=== PATIENT | female | born 1945 | race Caucasian/White ===

== ENCOUNTER → 2017-07-19 | Outpatient (REF) | payer MEDICARE ==
[2017-07-19 18:57] LABS: HEMATOCRIT 40.3 % (36.0-47.0); MEAN CORPUSCULAR HEMOGLOBIN 29.7 pg (27.0-33.0); MEAN CORPUSCULAR HGB CONC 32.3 g/dl (32.0-36.5); MEAN CORPUSCULAR VOLUME 92.2 fl (80.0-96.0); PLATELET COUNT, AUTOMATED 268 10^3/uL (150-450); RED BLOOD COUNT 4.37 10^6/uL (4.00-5.40); RED CELL DISTRIBUTION WIDTH 12.8 % (11.5-14.5); WHITE BLOOD COUNT 9.5 10^3/uL (4.0-10.0)
[2017-07-19 19:15] LABS: ALBUMIN 3.7 GM/DL (3.2-5.2); ALBUMIN/GLOBULIN RATIO 1.03 (1.00-1.93); ALKALINE PHOSPHATASE 70 U/L (45-117); ALT/SGPT 22 U/L (12-78); ANION GAP 6 MEQ/L (8-16); AST/SGOT 34 U/L (7-37); BILIRUBIN,TOTAL 0.4 MG/DL (0.2-1.0); BLOOD UREA NITROGEN 30 MG/DL (7-18); CALCIUM LEVEL 8.9 MG/DL (8.8-10.2); CARBON DIOXIDE LEVEL 26 MEQ/L (21-32); CHLORIDE LEVEL 110 MEQ/L (98-107); CHOLESTEROL LEVEL 176 MG/DL (<200); CHOLESTEROL RISK RATIO 3.911 (<5); CREATININE FOR GFR 1.62 MG/DL (0.55-1.02); GLOMERULAR FILTRATION RATE 33.3 (>39); GLUCOSE, FASTING 142 MG/DL (70-100); HDL CHOLESTEROL 45 MG/DL (>40); LDL CHOLESTEROL 82.8 MG/DL (<100); NON-HDL-C 131 MG/DL; SODIUM LEVEL 142 MEQ/L (136-145); TOTAL PROTEIN 7.3 GM/DL (6.4-8.2); TRIGLYCERIDES LEVEL 241 MG/DL (<150)
[2017-07-19 19:19] LABS: POTASSIUM SERUM 5.3 MEQ/L (3.5-5.1)
[2017-07-19 19:57] LABS: MAU/CREAT RATIO 194.9 MCG/MG (0.0-30.0)
[2017-07-19 20:02] LABS: ESTIMATED AVERAGE GLUCOSE 189 MG/DL (60-110); HEMOGLOBIN A1c 8.2 %
== END ==
LOC: M SFHCLERA 12:12
DX: E11.22 Type 2 diabetes mellitus with diabetic chronic kidney disease (principal); N18.3 Chronic kidney disease, stage 3 (moderate)
CPT/HCPCS: 84443

== ENCOUNTER → 2017-07-20 | Outpatient (CLI) | payer MEDICARE | LOC: M RAD 11:59 | DX: Z12.31 Encounter for screening mammogram for malignant neoplasm of breast (principal) | CPT/HCPCS: 77067 ==

== ENCOUNTER → 2017-08-17 | Outpatient (REF) | payer MEDICARE ==
[2017-08-17 17:28] LABS: POTASSIUM SERUM 5.6 MEQ/L (3.5-5.1)
== END ==
LOC: M SFHCLERA 12:18
DX: E11.29 Type 2 diabetes mellitus with other diabetic kidney complication (principal); N18.3 Chronic kidney disease, stage 3 (moderate)
CPT/HCPCS: 84132

== ENCOUNTER 2017-08-31 17:54 | Inpatient (IN) | payer MEDICARE ==
[2017-08-31] MEDS: NS 1,000 ML IV ×3 (18:45→22:41)
[2017-08-31 18:55] LABS: BASO % 0.5 % (0.0-1.0); EOS # 0.2 10^3/uL (0.0-0.50); EOS % 2.5 % (0.0-3.0); HEMATOCRIT 37.7 % (36.0-47.0); HEMOGLOBIN 12.3 g/dl (12.0-16.0); IMMATURE GRANULOCYTE % 0.5 % (0-3.0); LYMPH # 2.3 10^3/uL (1.5-4.5); LYMPH % 27.3 % (24.0-44.0); MEAN CORPUSCULAR HEMOGLOBIN 29.2 pg (27.0-33.0); MEAN CORPUSCULAR HGB CONC 32.6 g/dl (32.0-36.5); MEAN CORPUSCULAR VOLUME 89.5 fl (80.0-96.0); MONO # 0.7 10^3/uL (0.0-0.8); NEUTROPHILS # 5.2 10^3/uL (1.8-7.7); NEUTROPHILS % 61.2 % (36.0-66.0); PLATELET COUNT, AUTOMATED 286 10^3/uL (150-450); RED BLOOD COUNT 4.21 10^6/uL (4.00-5.40); RED CELL DISTRIBUTION WIDTH 12.9 % (11.5-14.5); WHITE BLOOD COUNT 8.5 10^3/uL (4.0-10.0)
[2017-08-31 19:24] LABS: ALBUMIN 3.4 GM/DL (3.2-5.2); ALBUMIN/GLOBULIN RATIO 0.92 (1.00-1.93); ALKALINE PHOSPHATASE 67 U/L (45-117); ALT/SGPT 16 U/L (12-78); ANION GAP 10 MEQ/L (8-16); AST/SGOT 18 U/L (7-37); BILIRUBIN,DIRECT 0.1 MG/DL (0.0-0.2); BILIRUBIN,TOTAL 0.3 MG/DL (0.2-1.0); BLOOD UREA NITROGEN 59 MG/DL (7-18); CARBON DIOXIDE LEVEL 23 MEQ/L (21-32); CHLORIDE LEVEL 107 MEQ/L (98-107); CPK CREATINE PHOSPHOKINASE 36 U/L (26-192); CREATININE FOR GFR 2.65 MG/DL (0.55-1.30); GLOMERULAR FILTRATION RATE 18.9 (>39); GLUCOSE, FASTING 227 MG/DL (70-100); MB/CK RELATIVE INDEX 2.77 (< OR =4); SODIUM LEVEL 140 MEQ/L (136-145); TOTAL PROTEIN 7.1 GM/DL (6.4-8.2); TROPONIN I < 0.02 NG/ML (< 0.10)
[2017-08-31 19:25] LABS: POTASSIUM SERUM 5.7 MEQ/L (3.5-5.1)
[2017-08-31] MEDS: HumaLOG INSULIN (NovoLOG) PER UNIT SC (21:00)
[2017-08-31 21:33] LABS: ALBUMIN 3.3 GM/DL (3.2-5.2); ALBUMIN/GLOBULIN RATIO 0.83 (1.00-1.93); ALKALINE PHOSPHATASE 61 U/L (45-117); ALT/SGPT 15 U/L (12-78); ANION GAP 6 MEQ/L (8-16); AST/SGOT 18 U/L (7-37); BILIRUBIN,TOTAL 0.2 MG/DL (0.2-1.0); BLOOD UREA NITROGEN 59 MG/DL (7-18); CALCIUM LEVEL 8.7 MG/DL (8.8-10.2); CARBON DIOXIDE LEVEL 24 MEQ/L (21-32); CHLORIDE LEVEL 111 MEQ/L (98-107); CREATININE FOR GFR 2.46 MG/DL (0.55-1.30); GLOMERULAR FILTRATION RATE 20.6 (>39); GLUCOSE, FASTING 138 MG/DL (70-100); KETONE, URINE AUTO RFX NEGATIVE (NEGATIVE); LEUKOCYTE ESTERASE UR AUTO RFX NEGATIVE (NEGATIVE); NITRITE, URINE AUTO RFX NEGATIVE (NEGATIVE); RBC, URINE AUTO RFX 1 /HPF (0-3); SODIUM LEVEL 141 MEQ/L (136-145); SPECIFIC GRAVITY UR AUTO RFX 1.012 (1.002-1.035); SQUAM EPITHELIAL CELL UR AURFX 0 /HPF (0-6); TOTAL PROTEIN 7.3 GM/DL (6.4-8.2); WBC, URINE AUTO RFX 0 /HPF (0-3)
[2017-08-31 21:41] LABS: POTASSIUM SERUM 5.5 MEQ/L (3.5-5.1)
[2017-08-31] MEDS ORDERED: DEXTROSE 50% 50 ML SYRINGE IV (22:45)
[2017-08-31] MEDS ORDERED: ACETAMINOPHEN TAB 650MG DOSE (2X325MG) PO (22:45)
[2017-08-31] MEDS ORDERED: GLUCOSE 4 GM CHEW TABLET PO (22:45)
[2017-08-31] MEDS ORDERED: GLUCAGON FOR INJ 1 MG VIAL (J1610) SC (22:45)
[2017-08-31] MEDS: SOD POLYSTYRENE SULFONATE SUSP 15 GM/60 ML UD PO (23:00)
[2017-08-31 23:44] LABS: BEDSIDE GLUCOSE 134 MG/DL (83-110)
[2017-09-01] MEDS: HEPARIN SOD (PORCINE) 5000 UNITS/ML VIAL SC ×4 (05:54→21:41)
[2017-09-01 06:37] LABS: HEMOGLOBIN 11.1 g/dl (12.0-16.0); MEAN CORPUSCULAR HEMOGLOBIN 29.5 pg (27.0-33.0); MEAN CORPUSCULAR HGB CONC 32.6 g/dl (32.0-36.5); MEAN CORPUSCULAR VOLUME 90.4 fl (80.0-96.0); PLATELET COUNT, AUTOMATED 251 10^3/uL (150-450); RED BLOOD COUNT 3.76 10^6/uL (4.00-5.40); RED CELL DISTRIBUTION WIDTH 12.9 % (11.5-14.5)
[2017-09-01 07:09] LABS: ALBUMIN 3.1 GM/DL (3.2-5.2); ANION GAP 8 MEQ/L (8-16); BLOOD UREA NITROGEN 52 MG/DL (7-18); CALCIUM LEVEL 8.4 MG/DL (8.8-10.2); CARBON DIOXIDE LEVEL 23 MEQ/L (21-32); CHLORIDE LEVEL 113 MEQ/L (98-107); GLOMERULAR FILTRATION RATE 24.7 (>39); GLUCOSE, FASTING 134 MG/DL (70-100); PHOSPHORUS LEVEL 3.3 MG/DL (2.5-4.9); SODIUM LEVEL 144 MEQ/L (136-145)
[2017-09-01] MEDS: HumaLOG INSULIN (NovoLOG) PER UNIT SC ×4 (07:53→21:00)
[2017-09-01] MEDS: DOCUSATE SODIUM 100 MG CAP PO ×2 (09:21→21:42)
[2017-09-01] MEDS: ASPIRIN 81 MG ENTERIC TAB PO (09:21)
[2017-09-01] MEDS: ALLOPURINOL 100 MG TAB PO (09:21)
[2017-09-01] MEDS: NS 1,000 ML IV (09:21)
[2017-09-01] MEDS: amLODIPine 10 MG TAB PO (09:21)
[2017-09-01] MEDS ORDERED: GASTROGRAFIN SOLUTION 30ML (Q9963) As Ordered (11:11)
[2017-09-01] MEDS: GASTROGRAFIN SOLUTION 30ML PO ×2 (11:30→12:00)
[2017-09-01] MEDS: OMEGA-3 1050MG CAPSULE PO ×2 (12:41→21:41)
[2017-09-01 14:14] LABS: BEDSIDE GLUCOSE 133 MG/DL (83-110)
[2017-09-01 15:03] LABS: POTASSIUM SERUM 5.3 MEQ/L (3.5-5.1)
[2017-09-01 15:05] LABS: INR 1.06; PROTHROMBIN TIME 13.9 SECONDS (12.4-14.5)
[2017-09-01 15:06] LABS: PARTIAL THROMBOPLASTIN TIME 28.7 SECONDS (26.8-37.9)
[2017-09-01] MEDS: SOD POLYSTYRENE SULFONATE SUSP 15 GM/60 ML UD PO (15:55)
[2017-09-01 17:08] LABS: BEDSIDE GLUCOSE 182 MG/DL (83-110)
[2017-09-01] MEDS: SIMVASTATIN 10 MG TAB PO (21:42)
[2017-09-01 21:51] LABS: BEDSIDE GLUCOSE 175 MG/DL (83-110)
[2017-09-02 05:13] LABS: HEMATOCRIT 32.1 % (36.0-47.0); HEMOGLOBIN 10.3 g/dl (12.0-16.0); MEAN CORPUSCULAR HEMOGLOBIN 28.9 pg (27.0-33.0); MEAN CORPUSCULAR HGB CONC 32.1 g/dl (32.0-36.5); MEAN CORPUSCULAR VOLUME 89.9 fl (80.0-96.0); PLATELET COUNT, AUTOMATED 246 10^3/uL (150-450); RED BLOOD COUNT 3.57 10^6/uL (4.00-5.40); RED CELL DISTRIBUTION WIDTH 12.9 % (11.5-14.5)
[2017-09-02] MEDS: HEPARIN SOD (PORCINE) 5000 UNITS/ML VIAL SC ×2 (05:24→14:00)
[2017-09-02 05:27] LABS: ANION GAP 9 MEQ/L (8-16); BLOOD UREA NITROGEN 39 MG/DL (7-18); CALCIUM LEVEL 8.3 MG/DL (8.8-10.2); CARBON DIOXIDE LEVEL 23 MEQ/L (21-32); CHLORIDE LEVEL 112 MEQ/L (98-107); CREATININE FOR GFR 1.74 MG/DL (0.55-1.30); GLOMERULAR FILTRATION RATE 30.7 (>39); GLUCOSE, FASTING 137 MG/DL (70-100); PHOSPHORUS LEVEL 3.4 MG/DL (2.5-4.9); SODIUM LEVEL 144 MEQ/L (136-145)
[2017-09-02 05:36] LABS: LDH LACTATE DEHYDROGENASE 112 U/L (84-246)
[2017-09-02] MEDS: HumaLOG INSULIN (NovoLOG) PER UNIT SC ×2 (08:42→11:45)
[2017-09-02] MEDS: OMEGA-3 1050MG CAPSULE PO (08:42)
[2017-09-02] MEDS: amLODIPine 10 MG TAB PO (08:42)
[2017-09-02] MEDS: DOCUSATE SODIUM 100 MG CAP PO (08:42)
[2017-09-02] MEDS: ALLOPURINOL 100 MG TAB PO (08:42)
[2017-09-02] MEDS: ASPIRIN 81 MG ENTERIC TAB PO (08:42)
[2017-09-02 10:56] LABS: ALPHA FETOPROTEIN TUMOR QUANT 2.7 NG/ML (<8.1); CARCINOEMBRYONIC ANTIGEN 0.6 NG/ML (<2.5)
[2017-09-02 11:25] LABS: CA 125 30.8 U/ML (<30.2)
[2017-09-02 11:25] LABS: CA19-9 TUMOR MARKER,CARBOHYDRA 5.2 U/ML (<35.0)
[2017-09-02 11:34] LABS: BEDSIDE GLUCOSE 166 MG/DL (83-110)
== END 2017-09-02 15:35 | disposition home or self-care (01) | DRG 684 ==
LOC: M PCU 09-01 17:25 → M ED 17:54 → M ED INP 22:41
DX: N17.9 Acute kidney failure, unspecified (principal); I12.9 Hypertensive chronic kidney disease with stage 1 through stage 4 chronic kidney disease, or unspecified chronic kidney disease; E87.5 Hyperkalemia; M10.9 Gout, unspecified; E11.9 Type 2 diabetes mellitus without complications; R19.09 Other intra-abdominal and pelvic swelling, mass and lump; N18.3 Chronic kidney disease, stage 3 (moderate); E78.5 Hyperlipidemia, unspecified; Z90.49 Acquired absence of other specified parts of digestive tract; Z90.710 Acquired absence of both cervix and uterus; Z79.82 Long term (current) use of aspirin; Z79.84 Long term (current) use of oral hypoglycemic drugs; Z79.899 Other long term (current) drug therapy

== ENCOUNTER → 2017-08-31 | Outpatient (REF) | payer MEDICARE ==
[2017-08-31 13:30] LABS: ANION GAP 10 MEQ/L (8-16); BLOOD UREA NITROGEN 51 MG/DL (7-18); CALCIUM LEVEL 9.7 MG/DL (8.8-10.2); CARBON DIOXIDE LEVEL 25 MEQ/L (21-32); CHLORIDE LEVEL 106 MEQ/L (98-107); CREATININE FOR GFR 2.28 MG/DL (0.55-1.30); GLOMERULAR FILTRATION RATE 22.5 (>39); GLUCOSE, FASTING 211 MG/DL (70-100); POTASSIUM SERUM 4.9 MEQ/L (3.5-5.1); SODIUM LEVEL 141 MEQ/L (136-145)
== END ==
LOC: M SFHCLERA 10:05
DX: E11.29 Type 2 diabetes mellitus with other diabetic kidney complication (principal); E87.5 Hyperkalemia
CPT/HCPCS: 80048

== ENCOUNTER → 2017-09-06 | Outpatient (REF) | payer MEDICARE ==
[2017-09-06 18:07] LABS: ANION GAP 8 MEQ/L (8-16); BLOOD UREA NITROGEN 46 MG/DL (7-18); CALCIUM LEVEL 9.6 MG/DL (8.8-10.2); CARBON DIOXIDE LEVEL 26 MEQ/L (21-32); CHLORIDE LEVEL 109 MEQ/L (98-107); CREATININE FOR GFR 1.78 MG/DL (0.55-1.30); GLOMERULAR FILTRATION RATE 29.9 (>39); GLUCOSE, FASTING 129 MG/DL (70-100); POTASSIUM SERUM 4.6 MEQ/L (3.5-5.1); SODIUM LEVEL 143 MEQ/L (136-145)
== END ==
LOC: M SFHCLERA 13:48
DX: I10 Essential (primary) hypertension (principal)
CPT/HCPCS: 80048

== ENCOUNTER → 2017-10-03 | Outpatient (REF) | payer MEDICARE ==
[2017-10-03 17:32] LABS: BASO % 0.4 % (0.0-1.0); EOS # 0.2 10^3/uL (0.0-0.50); EOS % 2.7 % (0.0-3.0); HEMOGLOBIN 12.3 g/dl (12.0-15.5); IMMATURE GRANULOCYTE % 0.4 % (0-3.0); LYMPH # 2.5 10^3/uL (1.5-4.5); MEAN CORPUSCULAR HEMOGLOBIN 29.8 pg (27.0-33.0); MEAN CORPUSCULAR HGB CONC 31.5 g/dl (32.0-36.5); MEAN CORPUSCULAR VOLUME 94.4 fl (80.0-96.0); MONO # 0.7 10^3/uL (0.0-0.8); MONO % 8.2 % (0.0-5.0); NEUTROPHILS # 4.9 10^3/uL (1.8-7.7); NEUTROPHILS % 58.3 % (36.0-66.0); PLATELET COUNT, AUTOMATED 260 10^3/uL (150-450); RED BLOOD COUNT 4.13 10^6/uL (4.00-5.40); RED CELL DISTRIBUTION WIDTH 13.9 % (11.5-14.5); WHITE BLOOD COUNT 8.4 10^3/uL (4.0-10.0)
[2017-10-03 17:58] LABS: INR 1.03; PROTHROMBIN TIME 13.6 SECONDS (12.4-14.5)
[2017-10-03 18:27] LABS: ANION GAP 6 MEQ/L (8-16); BLOOD UREA NITROGEN 43 MG/DL (7-18); CALCIUM LEVEL 9.4 MG/DL (8.8-10.2); CARBON DIOXIDE LEVEL 24 MEQ/L (21-32); CHLORIDE LEVEL 113 MEQ/L (98-107); CREATININE FOR GFR 2.01 MG/DL (0.55-1.30); ESTIMATED AVERAGE GLUCOSE 169 MG/DL (60-110); GLUCOSE, FASTING 153 MG/DL (70-100); HEMOGLOBIN A1c 7.5 %; SODIUM LEVEL 143 MEQ/L (136-145)
[2017-10-03 18:50] LABS: POTASSIUM SERUM 5.6 MEQ/L (3.5-5.1)
== END ==
LOC: M SFHCLERA 10:18
DX: Z01.818 Encounter for other preprocedural examination (principal); N85.9 Noninflammatory disorder of uterus, unspecified; E11.22 Type 2 diabetes mellitus with diabetic chronic kidney disease
CPT/HCPCS: 83036

== ENCOUNTER → 2017-10-10 | Outpatient (REF) | payer MEDICARE ==
[2017-10-10 12:04] LABS: ANION GAP 7 MEQ/L (8-16); BLOOD UREA NITROGEN 45 MG/DL (7-18); CARBON DIOXIDE LEVEL 24 MEQ/L (21-32); CHLORIDE LEVEL 112 MEQ/L (98-107); CREATININE FOR GFR 1.97 MG/DL (0.55-1.30); GLOMERULAR FILTRATION RATE 26.6 (>39); GLUCOSE, FASTING 144 MG/DL (70-100); SODIUM LEVEL 143 MEQ/L (136-145)
[2017-10-10 12:05] LABS: POTASSIUM SERUM 5.2 MEQ/L (3.5-5.1)
== END ==
LOC: M SFHCLERA 08:49
DX: N18.4 Chronic kidney disease, stage 4 (severe) (principal)
CPT/HCPCS: 80048

== ENCOUNTER → 2017-11-14 | Outpatient (REF) | payer MEDICARE ==
[2017-11-14 16:42] LABS: ANION GAP 7 MEQ/L (8-16); BLOOD UREA NITROGEN 39 MG/DL (7-18); CALCIUM LEVEL 9.3 MG/DL (8.8-10.2); CARBON DIOXIDE LEVEL 26 MEQ/L (21-32); CHLORIDE LEVEL 110 MEQ/L (98-107); CREATININE FOR GFR 1.94 MG/DL (0.55-1.30); GLOMERULAR FILTRATION RATE 27.1 (>39); GLUCOSE, FASTING 91 MG/DL (70-100); SODIUM LEVEL 143 MEQ/L (136-145)
[2017-11-14 16:46] LABS: POTASSIUM SERUM 5.6 MEQ/L (3.5-5.1)
== END ==
LOC: M SFHCLERA 11:10
DX: N18.3 Chronic kidney disease, stage 3 (moderate) (principal)
CPT/HCPCS: 80048

== ENCOUNTER → 2017-11-16 | Outpatient (CLI) | payer MEDICARE ==
[2017-11-16 09:52] LABS: CORTISOL AM 17.5 UG/DL (4.3-22.4)
[2017-11-21 14:08] LABS: ALDOSTERONE 3.8 ng/dL (0.0-30.0)
[2017-11-21 14:08] LABS: RENIN LEVEL 0.564 ng/mL/hr (0.167-5.380)
== END ==
LOC: M LAB 08:05
DX: E87.5 Hyperkalemia (principal)
CPT/HCPCS: 84244

== ENCOUNTER → 2017-12-16 | Outpatient (REF) | payer MEDICARE ==
[2017-12-16 13:28] LABS: ESTIMATED AVERAGE GLUCOSE 123 MG/DL (60-110); HEMOGLOBIN A1c 5.9 %
== END ==
LOC: M SFHCLERA 09:18
DX: E11.29 Type 2 diabetes mellitus with other diabetic kidney complication (principal)
CPT/HCPCS: 83036

== ENCOUNTER → 2017-12-26 | Outpatient (REF) | payer MEDICARE ==
[2017-12-26 19:49] LABS: FERRITIN 242 NG/ML (8-252); IRON (FE) 75 UG/DL (50-170); PERCENT SATURATION 22.1 % (13.2-45.0); TOTAL IRON BINDING CAPACITY 340 UG/DL (250-450)
== END ==
LOC: M LAB REF 17:11
DX: N18.9 Chronic kidney disease, unspecified (principal); D63.1 Anemia in chronic kidney disease
CPT/HCPCS: 83550

== ENCOUNTER → 2018-01-04 | Outpatient (CLI) | payer MEDICARE | LOC: M RAD 07:10 | DX: N18.9 Chronic kidney disease, unspecified (principal); I12.9 Hypertensive chronic kidney disease with stage 1 through stage 4 chronic kidney disease, or unspecified chronic kidney disease | CPT/HCPCS: 76775 ==

== ENCOUNTER → 2018-07-12 | Outpatient (REF) | payer MEDICARE ==
[~2018-07-12] MED LIST: ACET65TA OR; ALLO100T PO; ASPI81TA83 PO; FERR325T OR; FISH100049 PO; GLIP10TA6 PO; GLUC850T PO; HYDR25TAB PO; KEFL250C OR; LISI-538 PO; LISI5TAB PO; METO1TAB33 PO; NORV5TAB PO; PIOG1TAB55 PO; SIMV10TA2 PO
[2018-07-12 17:01] LABS: BASO # 0.1 10^3/uL (0.0-0.2); BASO % 0.6 % (0.0-1.0); EOS # 0.3 10^3/uL (0.0-0.50); EOS % 3.3 % (0.0-3.0); HEMATOCRIT 37.3 % (36.0-47.0); HEMOGLOBIN 11.7 g/dl (12.0-15.5); LYMPH # 2.2 10^3/uL (1.5-4.5); LYMPH % 26.2 % (24.0-44.0); MEAN CORPUSCULAR HEMOGLOBIN 30.2 pg (27.0-33.0); MEAN CORPUSCULAR HGB CONC 31.4 g/dl (32.0-36.5); MEAN CORPUSCULAR VOLUME 96.4 fl (80.0-96.0); MONO # 0.7 10^3/uL (0.0-0.8); NEUTROPHILS # 5.1 10^3/uL (1.8-7.7); NEUTROPHILS % 61.3 % (36.0-66.0); PLATELET COUNT, AUTOMATED 262 10^3/uL (150-450); RED BLOOD COUNT 3.87 10^6/uL (4.00-5.40); WHITE BLOOD COUNT 8.3 10^3/uL (4.0-10.0)
[2018-07-12 17:12] LABS: ALBUMIN 3.1 GM/DL (3.2-5.2); BILIRUBIN,TOTAL 0.3 MG/DL (0.2-1.0); CALCIUM LEVEL 9.3 MG/DL (8.8-10.2); CHOLESTEROL RISK RATIO 3.17 (<5); CREATININE FOR GFR 2.25 MG/DL (0.55-1.30); GLOMERULAR FILTRATION RATE 22.8 (>39); POTASSIUM SERUM 5.7 MEQ/L (3.5-5.1); THYROID STIMULATING HORMONE 2.46 uIU/ML (0.358-3.740); TOTAL PROTEIN 7.1 GM/DL (6.4-8.2)
[2018-07-12 17:13] LABS: HEMOGLOBIN A1c 6.4 %
[2018-07-12 17:18] LABS: CREATININE, URINE 99.7 MG/DL; MAU/CREAT RATIO 121.3 MCG/MG (0.0-30.0)
== END ==
LOC: M SFHCLERA 10:21
PROVIDERS: ATTEND Family Medicine
DX: E11.29 Type 2 diabetes mellitus with other diabetic kidney complication (principal)

== ENCOUNTER → 2018-07-21 | Outpatient (CLI) | payer MEDICARE ==
--- NOTE | 2018-07-21 10:50 | REPMRS ---
Patient History The patient states she has not had a clinical breast exam in over a year. No known family history of cancer. Digital Mammo Screening Bilat: July 21, 2018 - Exam #: [id number] Bilateral CC and MLO view(s) were taken. Technologist: Cynthia Begum, Technologist Prior study comparison: July 20, 2017, bilateral digital mammo screening bilat performed at [facility]. April 12, 2000, bilateral screening mammogram, performed at [facility]. FINDINGS: There are scattered fibroglandular densities. There has been no change in the appearance of the mammogram from the prior studies. There is a mild amount of scattered fibroglandular density which is fairly symmetric. There is no interval development of dominant mass, architectural distortion, or clustered microcalcification suggestive of malignancy. 3-D tomosynthesis shows no additional findings. Assessment: BI-RADS/ACR category 1 mammogram. Negative Mammogram. Recommendation Routine screening mammogram of both breasts in 1 year (for women over age 40). This patient's Lifetime Breast Cancer RIsk is estimated at 2.8 %. This mammogram was interpreted with the aid of an FDA-approved computer-aided dectection system. Electronically Signed By: Enrique Rangel MD 07/21/18 [id number]
== END ==
LOC: M RAD 10:15
PROVIDERS: ATTEND Family Medicine
DX: Z12.31 Encounter for screening mammogram for malignant neoplasm of breast (principal)

== ENCOUNTER → 2018-10-11 | Outpatient (REF) | payer MEDICARE ==
[2018-10-11 11:27] LABS: CALCIUM LEVEL 9.5 MG/DL (8.8-10.2); CREATININE FOR GFR 1.95 MG/DL (0.55-1.30); GLOMERULAR FILTRATION RATE 26.8 (>39)
== END ==
LOC: M SFHCLERA 08:56
PROVIDERS: ATTEND Family Medicine
DX: N18.4 Chronic kidney disease, stage 4 (severe) (principal)

== ENCOUNTER → 2018-10-16 | Outpatient (CLI) | payer MEDICARE ==
--- NOTE | 2018-10-16 10:19 | REP ---
LUMBAR SPINE, FIVE VIEWS: HISTORY: Mid back pain. There is no acute fracture or subluxation. The L3-4 through L5-S1 intervertebral discs are decreased in height consistent with disc degeneration. Osteophytes are present on L1 and L5. There is narrowing of the right L4-5 and L5-S1 and left L4-5 facet joints. Impression: Degenerative change as described above. Electronically Signed by Javier Tomlinson MD 10/16/2018 10:24 A
--- NOTE | 2018-10-16 10:20 | REP ---
THORACIC SPINE, FOUR VIEWS: HISTORY: Back pain. There is no acute fracture or subluxation. There is loss of height of several mid and lower thoracic intervertebral discs. Osteophytes are present in the mid and lower thoracic spine. IMPRESSION: Degenerative change as described above. Electronically Signed by Javier Tomlinson MD 10/16/2018 10:25 A
== END ==
LOC: M LRY 09:23
PROVIDERS: ATTEND Family Medicine
DX: M51.34 Other intervertebral disc degeneration, thoracic region (principal); M51.36 Other intervertebral disc degeneration, lumbar region; M51.37 Other intervertebral disc degeneration, lumbosacral region; M25.78 Osteophyte, vertebrae
CPT/HCPCS: 72072; 72110; G0463

== ENCOUNTER → 2018-11-02 | Outpatient (CLI) | payer MEDICARE ==
--- NOTE | 2018-11-06 14:44 | DEXA ---
AP SPINE L1 - L4 1.382 1.5 3.2 LT FEMUR TOTAL 1.064 0.4 2.0 LT NECK 0.938 -0.7 -1.1 RT FEMUR TOTAL 1.066 0.5 2.1 RT NECK 1.042 0.0 1.8 TOTAL BODY TOTAL OTHER COMMENTS: Normal bone densitometry of the spine and hips. The increased density of the spine does represent a significant change. The decreased density of the left hip does represent a significant change. The decreased density of the right hip does represent significant change. The density of the spine has increased 12.6% since the initial exam on 07/24/2001. The spine density has increased 4.2% since the most recent exam on 05/17/2013. The density of the left hip has decreased 4.7% since the initial exam on 07/24/2001. The density of the left hip has decreased 3.2% since the most recent exam on 05/17/2013. The density of the right hip has decreased 6.7% since the initial exam on 07/24/2001. The density of the right hip has decreased 2.4% since the most recent exam on 05/17/2013. FOLLOW-UP: Recommendation for the next bone density exam: 5 years. KELSY
== END ==
LOC: M WHC 12:52
PROVIDERS: ATTEND Family Medicine
DX: Z13.820 Encounter for screening for osteoporosis (principal); M85.89 Other specified disorders of bone density and structure, multiple sites

== ENCOUNTER → 2019-01-15 | Outpatient (REF) | payer MEDICARE ==
[2019-01-15 14:43] LABS: CALCIUM LEVEL 9.5 MG/DL (8.8-10.2); CHOLESTEROL RISK RATIO 3.212 (<5); CREATININE FOR GFR 2.17 MG/DL (0.55-1.30); GLOMERULAR FILTRATION RATE 23.7 (>39); POTASSIUM SERUM 4.6 MEQ/L (3.5-5.1)
[2019-01-15 15:06] LABS: HEMOGLOBIN A1c 6.5 %
[2019-01-15 15:17] LABS: BASO # 0.1 10^3/uL (0.0-0.2); BASO % 0.7 % (0.0-1.0); EOS # 0.3 10^3/uL (0.0-0.50); EOS % 3.8 % (0.0-3.0); HEMATOCRIT 37.7 % (36.0-47.0); HEMOGLOBIN 11.8 g/dl (12.0-15.5); LYMPH # 2.1 10^3/uL (1.5-4.5); LYMPH % 29.4 % (24.0-44.0); MEAN CORPUSCULAR HEMOGLOBIN 30.6 pg (27.0-33.0); MEAN CORPUSCULAR HGB CONC 31.3 g/dl (32.0-36.5); MEAN CORPUSCULAR VOLUME 97.7 fl (80.0-96.0); MONO # 0.6 10^3/uL (0.0-0.8); NEUTROPHILS # 4.1 10^3/uL (1.8-7.7); NEUTROPHILS % 57.8 % (36.0-66.0); PLATELET COUNT, AUTOMATED 239 10^3/uL (150-450); RED BLOOD COUNT 3.86 10^6/uL (4.00-5.40); WHITE BLOOD COUNT 7.1 10^3/uL (4.0-10.0)
== END ==
LOC: M SFHCLERA 11:34
PROVIDERS: ATTEND Family Medicine
DX: E11.29 Type 2 diabetes mellitus with other diabetic kidney complication (principal); N18.4 Chronic kidney disease, stage 4 (severe); E78.5 Hyperlipidemia, unspecified
CPT/HCPCS: 80048; 80061; 83036; 85025; G0463

== ENCOUNTER → 2019-04-17 | Outpatient (REF) | payer MEDICARE ==
[2019-04-17 17:51] LABS: CALCIUM LEVEL 9.5 MG/DL (8.8-10.2); CREATININE FOR GFR 2.24 MG/DL (0.55-1.30); GLOMERULAR FILTRATION RATE 22.8 (>39); MAGNESIUM LEVEL 2.2 MG/DL (1.8-2.4); PHOSPHORUS LEVEL 4.1 MG/DL (2.5-4.9); POTASSIUM SERUM 5.5 MEQ/L (3.5-5.1)
== END ==
LOC: M SFHCLERA 12:39
PROVIDERS: ATTEND Family Medicine
DX: I12.9 Hypertensive chronic kidney disease with stage 1 through stage 4 chronic kidney disease, or unspecified chronic kidney disease (principal); N18.4 Chronic kidney disease, stage 4 (severe); Z23 Encounter for immunization
CPT/HCPCS: 80048; 83735; 84100; 90471; 90682; G0463

== ENCOUNTER → 2019-04-19 | Outpatient (REF) | payer MEDICARE ==
[2019-04-19 18:19] LABS: PERCENT SATURATION 30.3 % (13.2-45.0)
== END ==
LOC: M LAB REF 16:44
PROVIDERS: ATTEND Internal Medicine Nephrology
DX: N18.9 Chronic kidney disease, unspecified (principal); D63.1 Anemia in chronic kidney disease

== ENCOUNTER → 2019-07-18 | Outpatient (REF) | payer MEDICARE ==
[~2019-07-18] MED LIST changes: +SIMV10TA21 PO
[2019-07-18 20:33] LABS: CREATININE FOR GFR 2.14 MG/DL (0.55-1.30); POTASSIUM SERUM 4.5 MEQ/L (3.5-5.1)
[2019-07-18 20:53] LABS: HEMOGLOBIN A1c 6.1 %
== END ==
LOC: M SFHCLERA 15:16
PROVIDERS: ATTEND Family Medicine
DX: E11.29 Type 2 diabetes mellitus with other diabetic kidney complication (principal); N18.4 Chronic kidney disease, stage 4 (severe)

== ENCOUNTER → 2019-12-20 | Outpatient (REF) | payer MEDICARE ==
[2019-12-20 11:44] LABS: CHOLESTEROL RISK RATIO 3.488 (<5)
[2019-12-20 12:06] LABS: HEMOGLOBIN A1c 6.1 %
== END ==
LOC: M SFHCLERA 09:23
PROVIDERS: ATTEND Family Medicine
DX: E11.22 Type 2 diabetes mellitus with diabetic chronic kidney disease (principal); E78.2 Mixed hyperlipidemia

== ENCOUNTER → 2020-08-21 | Outpatient (CLI) | payer MEDICARE ==
[~2020-08-21] MED LIST changes: +HYDR-3490 PO; -HYDR25TAB PO; -LISI-538 PO; +LISI20TA33 PO
[2020-08-21 12:10] LABS: HEMOGLOBIN A1c 5.8 %
[2020-08-21 12:18] LABS: CALCIUM LEVEL 9.3 MG/DL (8.8-10.2); CHOLESTEROL RISK RATIO 3.52 (<5); CREATININE FOR GFR 2.11 MG/DL (0.55-1.30); GLOMERULAR FILTRATION RATE 24.4 (>39); POTASSIUM SERUM 4.6 MEQ/L (3.5-5.1)
== END ==
LOC: M WUC 10:16
PROVIDERS: ATTEND Family Medicine
DX: E11.22 Type 2 diabetes mellitus with diabetic chronic kidney disease (principal)

== ENCOUNTER → 2021-02-25 | Outpatient (REF) | payer MEDICARE | LOC: M LAB REF 17:01 | PROVIDERS: ATTEND Internal Medicine Nephrology | DX: E83.42 Hypomagnesemia (principal) ==

== ENCOUNTER → 2021-03-17 | Outpatient (CLI) | payer MEDICARE ==
--- NOTE | 2021-03-17 12:37 | REPMRS ---
Patient History The patient states she had a clinical breast exam in Jul 2020. Patient is postmenopausal. No known family history of cancer. Benign excisional biopsy of the left breast, 1979. Patient states no breast complaints today. Patient has signed MRS History Sheet. Digital Woman Screen Mammo: March 17, 2021 - Exam #: [id number] Bilateral CC and MLO view(s) were taken. Technologist: Katy Rogers, Technologist Prior study comparison: July 21, 2018, bilateral digital mammo screening bilat, performed at [facility]. July 20, 2017, bilateral digital mammo screening bilat, performed at [facility]. FINDINGS: There are scattered fibroglandular densities. Screening. Digital screening (2D) mammography was performed bilaterally in the CC and MLO projections. Additionally, breast tomosynthesis (3D mammography) was performed bilaterally in the CC and MLO projections. Todays exam was compared to the prior exam/exams. By history, the patient has no complaints of a palpable breast abnormality or other significant breast complaints. The breasts are unchanged in size and shape. There are no scar-soft tissue densities or spiculated masses. There is no internal architectural distortion. There are no suspicious scar-calcific clusters. Skin thickening or nipple retraction is not present. The Volpara volumetric breast density category is B, there are scattered areas of fibroglandular densities. IMPRESSION: BI-RADS Category 2- Benign Findings. There is no evidence of malignant alteration of the breasts. Followup examination recommended in one year. This mammogram was read with the assistance of [employer],an FDA approved computer aided detection system for mammography. The lifetime Tyrer-Cuzick score is 2.2% Negative x-ray reports should not delay surgical consultation if a dominant or clinically suspicious mass is present. Not all breast cancers can be identified by mammography. Therefore, we recommend that you continue to perform regular breast self-examination and physical examination and then promptly contact your physician of any concerns or changes. Adenosis and dense breasts may obscure an underlying neoplasm. No significant changes when compared with prior studies. Assessment: BI-RADS/ACR category 2 mammogram. Benign Findings. Recommendation Routine screening mammogram of both breasts in 1 year. Electronically Signed By: Reji Goldstein MD 03/17/21 [id number]
== END ==
LOC: M WHC 10:43
PROVIDERS: ATTEND Family Medicine
DX: Z12.31 Encounter for screening mammogram for malignant neoplasm of breast (principal); Z78.0 Asymptomatic menopausal state

== ENCOUNTER → 2021-08-13 | Outpatient (CLI) | payer MEDICARE, OTHER ==
[2021-08-13 12:58] LABS: CALCIUM LEVEL 9.4 MG/DL (8.8-10.2); CHOLESTEROL RISK RATIO 2.893 (<5); CREATININE FOR GFR 2.18 MG/DL (0.55-1.30); GLOMERULAR FILTRATION RATE 23.4 (>39); POTASSIUM SERUM 4.4 MEQ/L (3.5-5.1)
[2021-08-13 15:49] LABS: HEMOGLOBIN A1c 5.7 %
== END ==
LOC: M WUC 09:14
PROVIDERS: ATTEND Family Medicine
DX: E11.22 Type 2 diabetes mellitus with diabetic chronic kidney disease (principal); E78.2 Mixed hyperlipidemia

== ENCOUNTER → 2022-02-19 | Outpatient (REF) | payer MEDICARE, OTHER ==
[2022-02-19 16:52] LABS: HEMOGLOBIN A1c 5.8 %
[2022-02-19 16:57] LABS: CALCIUM LEVEL 9.9 MG/DL (8.8-10.2); CREATININE FOR GFR 2.26 MG/DL (0.55-1.30); GLOMERULAR FILTRATION RATE 22.4 (>39); POTASSIUM SERUM 5.1 MEQ/L (3.5-5.1)
== END ==
LOC: M LABWUC 16:02
PROVIDERS: ATTEND Family Medicine
DX: E11.22 Type 2 diabetes mellitus with diabetic chronic kidney disease (principal); N18.9 Chronic kidney disease, unspecified

== ENCOUNTER → 2022-07-06 | Outpatient (REF) | payer OTHER ==
[2022-07-06 19:53] LABS: CREATININE,RANDOM URINE 194.9 MG/DL; TOTAL PROTEIN,RANDOM URINE 93.3 MG/DL (0.0-14.0)
== END ==
LOC: M LAB REF 17:25
PROVIDERS: ATTEND Nurse Practitioner Family
DX: R80.9 Proteinuria, unspecified (principal)

== ENCOUNTER → 2022-08-30 | Outpatient (CLI) | payer OTHER ==
[2022-08-30 15:45] LABS: CALCIUM LEVEL 9.3 MG/DL (8.3-10.6); CREATININE FOR GFR 2.18 MG/DL (0.55-1.30); GLOMERULAR FILTRATION RATE 23.3 (>39); POTASSIUM SERUM 5.5 MMOL/L (3.5-5.1)
[2022-08-30 16:03] LABS: HEMOGLOBIN A1c 5.8 % (4.0-6.0)
== END ==
LOC: M PLALAB 13:32
PROVIDERS: ATTEND Family Medicine
DX: E11.22 Type 2 diabetes mellitus with diabetic chronic kidney disease (principal)

== ENCOUNTER → 2022-08-30 | Outpatient (CLI) | payer OTHER | LOC: M WHC 12:25 | PROVIDERS: ATTEND Family Medicine | DX: Z12.31 Encounter for screening mammogram for malignant neoplasm of breast (principal); Z13.820 Encounter for screening for osteoporosis; E11.22 Type 2 diabetes mellitus with diabetic chronic kidney disease; M85.852 Other specified disorders of bone density and structure, left thigh; R92.1 Mammographic calcification found on diagnostic imaging of breast ==

== ENCOUNTER → 2022-12-07 | Outpatient (CLI) | payer OTHER | LOC: M WUC 08:30 | PROVIDERS: ATTEND Student in an Organized Health Care Education/Training Program | DX: M85.871 Other specified disorders of bone density and structure, right ankle and foot (principal); M19.071 Primary osteoarthritis, right ankle and foot ==

== ENCOUNTER → 2023-03-14 | Outpatient (CLI) | payer OTHER ==
[2023-03-14 11:30] LABS: HEMOGLOBIN A1c 5.2 % (4.0-6.0)
[2023-03-14 11:57] LABS: ALBUMIN 2.8 G/DL (3.2-5.2); ALKALINE PHOSPHATASE 58 U/L (46-116); ALT/SGPT < 9 U/L (7.0-40); AST/SGOT 11 U/L (<34); BILIRUBIN,TOTAL 0.2 MG/DL (0.3-1.2); BLOOD UREA NITROGEN 47 MG/DL (9-23); CALCIUM LEVEL 8.9 MG/DL (8.3-10.6); CARBON DIOXIDE LEVEL 27 MMOL/L (20-31); CHLORIDE LEVEL 107 MMOL/L (98-107); CHOLESTEROL LEVEL 149 MG/DL (<200); CHOLESTEROL RISK RATIO 3.37 (<5); GLUCOSE, FASTING 116 MG/DL (74-106); HDL CHOLESTEROL 44.2 MG/DL (>40); NON-HDL-C 104.8 MG/DL; POTASSIUM SERUM 4.1 MMOL/L (3.5-5.1); SODIUM LEVEL 143 MMOL/L (136-145); TOTAL PROTEIN 6.3 G/DL (5.7-8.2); TRIGLYCERIDES LEVEL 149 MG/DL (<150)
[2023-03-14 13:33] LABS: CREATININE, URINE 156.8 MG/DL
[2023-03-14 13:45] LABS: MAU/CREAT RATIO 869.8 MCG/MG (0.0-30.0)
== END ==
LOC: M WUC 08:39
PROVIDERS: ATTEND Family Medicine
DX: E11.29 Type 2 diabetes mellitus with other diabetic kidney complication (principal); E78.2 Mixed hyperlipidemia

== ENCOUNTER 2023-06-25 10:13 | Inpatient (IN) | payer OTHER ==
[~2023-06-25] VITALS: Ht 165.1 cm; Wt 94.5 kg
[2023-06-25 11:13] LABS: BASO % 0.3 % (0.0-1.0); EOS # 0.2 10^3/uL (0.0-0.5); EOS % 1.2 % (0.0-3.0); HEMOGLOBIN 10.2 g/dl (12.0-15.5); LYMPH # 0.9 10^3/uL (1.5-5.0); LYMPH % 7.4 % (24.0-44.0); MEAN CORPUSCULAR HEMOGLOBIN 30.2 pg (27.0-33.0); MEAN CORPUSCULAR HGB CONC 31.9 g/dl (32.0-36.5); MEAN CORPUSCULAR VOLUME 94.7 fl (80.0-96.0); MONO # 1.2 10^3/uL (0.0-0.8); MONO % 9.5 % (2.0-8.0); NEUTROPHILS # 10.1 10^3/uL (1.5-8.5); PLATELET COUNT, AUTOMATED 349 10^3/uL (150-450); RED BLOOD COUNT 3.38 10^6/uL (4.00-5.40); WHITE BLOOD COUNT 12.5 10^3/uL (4.0-10.0)
[2023-06-25 11:30] LABS: INR 1.23; PARTIAL THROMBOPLASTIN TIME 28.8 SECONDS (24.8-34.2); PROTHROMBIN TIME 15.1 SECONDS (12.5-14.5)
[2023-06-25 11:42] LABS: ALBUMIN 3.1 G/DL (3.2-5.2); ALKALINE PHOSPHATASE 73 U/L (46-116); ALT/SGPT < 9 U/L (7.0-40); AST/SGOT 21 U/L (<34); BILIRUBIN,DIRECT 0.2 MG/DL (<0.4); BILIRUBIN,TOTAL 0.6 MG/DL (0.3-1.2); BLOOD UREA NITROGEN 85 MG/DL (9-23); CALCIUM LEVEL 9.4 MG/DL (8.3-10.6); CARBON DIOXIDE LEVEL 21 MMOL/L (20-31); CHLORIDE LEVEL 112 MMOL/L (98-107); CK-MB VALUE MASS 1.2 NG/ML (<3.6); CREATININE FOR GFR 2.71 MG/DL (0.55-1.30); FREE T4 1.29 NG/DL (0.89-1.76); GLOMERULAR FILTRATION RATE 18.1 (>39); GLUCOSE, FASTING 134 MG/DL (74-106); POTASSIUM SERUM 4.4 MMOL/L (3.5-5.1); SODIUM LEVEL 145 MMOL/L (136-145); THYROID STIMULATING HORMONE 3.085 uIU/ML (0.55-4.78); TOTAL PROTEIN 6.6 G/DL (5.7-8.2)
[2023-06-25 11:50] LABS: CPK CREATINE PHOSPHOKINASE 63 U/L (34-145)
[2023-06-25] MEDS ORDERED: ASPIRIN 81MG CHEW TABLET PO ONE (12:15)
[2023-06-25] MEDS ORDERED: ACETAMINOPHEN 325 MG TAB PO ONE (12:15)
[2023-06-25] MEDS ORDERED: NS 1,000 ML IV SCH (12:20)
[2023-06-25 12:31] LABS: CK-MB VALUE MASS 1.4 NG/ML (<3.6)
[2023-06-25 12:32] LABS: MB/CK RELATIVE INDEX 3.04 (< OR =4)
[2023-06-25 12:39] LABS: PROCALCITONIN 0.13 ng/ml
[2023-06-25] MEDS ORDERED: AZITHROMYCIN 250MG TABLET PO ONE (13:25)
[2023-06-25] MEDS ORDERED: cefTRIAXone SOD 1 GM in D5W MINI-BAG PLUS 50 ML IV ONE (13:25)
[2023-06-25] MEDS: NITROGLYCERIN 0.4MG SUBL TABLET SL PRN (13:47)
[2023-06-25] MEDS ORDERED: HEPARIN SOD (PORCINE) 5000UNITS/ML 1ML VIAL/SYRINGE IV ONE (14:05)
[2023-06-25] MEDS ORDERED: CLOPIDOGREL 75 MG TAB PO ONE (14:05)
[2023-06-25] MEDS ORDERED: HEPARIN DRIP 25,000 UNITS in IV 1 EA IV SCH (14:05)
[2023-06-25] MEDS ORDERED: MED REC IN PROGRESS XX SCH (14:15)
[2023-06-25] MEDS ORDERED: FURO20TA2 PO (14:26)
[2023-06-25] MEDS ORDERED: IRON65TA2 PO (14:26)
[2023-06-25] MEDS ORDERED: ASPI81TA26 PO (14:26)
[2023-06-25] MEDS ORDERED: HYDR-3910 PO (14:26)
[2023-06-25] MEDS ORDERED: HOME MED LIST COMPLETE! XX SCH (14:35)
[2023-06-25 15:11] LABS: INR 1.21; PROTHROMBIN TIME 14.9 SECONDS (12.5-14.5)
[2023-06-25 15:12] LABS: PARTIAL THROMBOPLASTIN TIME 28.9 SECONDS (24.8-34.2)
[2023-06-25 15:13] LABS: CK-MB VALUE MASS 2.6 NG/ML (<3.6)
[2023-06-25 15:14] LABS: MB/CK RELATIVE INDEX 4.48 (< OR =4)
[2023-06-25] MEDS ORDERED: GLUCAGON INJ 1MG VIAL SC PRN ×2 (16:35→21:10)
[2023-06-25] MEDS ORDERED: GLUCOSE 4GM CHEW TABLET PO PRN ×2 (16:35→21:10)
[2023-06-25] MEDS ORDERED: DEXTROSE 50% 50ML SYRINGE IV PRN ×2 (16:35→21:10)
[2023-06-25] MEDS ORDERED: INSULIN LISPRO (NovoLOG) PER UNIT SC SCH ×2 (17:30→21:00)
[2023-06-25] MEDS: IPRATROPIUM 0.5MG/ALBUTEROL 2.5MG INH SOL UD 3ML (DUONEB) NEB SCH ×2 (19:32→23:19)
[2023-06-25 20:30] VITALS: BP 172/72; TEMP 98.4; O2SAT 95
[2023-06-25] MEDS: NS 1,000 ML IV SCH (20:54)
[2023-06-25 21:00] VITALS: BP 157/67; O2SAT 97
[2023-06-25] MEDS: OMEGA-3 1000MG CAPSULE PO SCH (21:00)
[2023-06-25] MEDS: METOPROLOL SUCC (TopROL XL) 100MG *XL* TAB PO SCH (21:49)
[2023-06-25 22:00] VITALS: BP 156/69; O2SAT 97
[2023-06-25] MEDS ORDERED: HEPARIN SOD (PORCINE) 5000UNITS/ML 1ML VIAL/SYRINGE IV PRN (22:50)
[2023-06-25 23:00] VITALS: BP 156/68; O2SAT 97
[2023-06-25] MEDS: HEPARIN DRIP 25,000 UNITS in IV 1 EA IV SCH (23:00)
[2023-06-26] VITALS (14 sets, daily range): BP systolic 134–162; BP diastolic 62–72; TEMP 97.9–99.6; O2SAT 93–98
[2023-06-26] MEDS: IPRATROPIUM 0.5MG/ALBUTEROL 2.5MG INH SOL UD 3ML (DUONEB) NEB SCH ×6 (03:23→23:08)
[2023-06-26] MEDS: NS 1,000 ML IV SCH (04:56)
[2023-06-26 05:26] LABS: BASO % 0.4 % (0.0-1.0); EOS # 0.2 10^3/uL (0.0-0.5); EOS % 2.2 % (0.0-3.0); HEMATOCRIT 27.1 % (36.0-47.0); HEMOGLOBIN 8.7 g/dl (12.0-15.5); LYMPH # 1.2 10^3/uL (1.5-5.0); LYMPH % 14.7 % (24.0-44.0); MEAN CORPUSCULAR HGB CONC 32.1 g/dl (32.0-36.5); MEAN CORPUSCULAR VOLUME 96.4 fl (80.0-96.0); MONO # 0.9 10^3/uL (0.0-0.8); MONO % 11.1 % (2.0-8.0); NEUTROPHILS # 5.9 10^3/uL (1.5-8.5); NEUTROPHILS % 71.1 % (36.0-66.0); PLATELET COUNT, AUTOMATED 266 10^3/uL (150-450); RED BLOOD COUNT 2.81 10^6/uL (4.00-5.40); WHITE BLOOD COUNT 8.3 10^3/uL (4.0-10.0)
[2023-06-26] MEDS: INSULIN LISPRO (NovoLOG) PER UNIT SC SCH ×5 (06:00→20:24)
[2023-06-26 06:11] LABS: ALBUMIN 2.5 G/DL (3.2-5.2); ALKALINE PHOSPHATASE 58 U/L (46-116); ALT/SGPT < 9 U/L (7.0-40); AST/SGOT 29 U/L (<34); BILIRUBIN,TOTAL 0.3 MG/DL (0.3-1.2); BLOOD UREA NITROGEN 79 MG/DL (9-23); CALCIUM LEVEL 8.4 MG/DL (8.3-10.6); CARBON DIOXIDE LEVEL 20 MMOL/L (20-31); CHLORIDE LEVEL 116 MMOL/L (98-107); CREATININE FOR GFR 2.54 MG/DL (0.55-1.30); GLOMERULAR FILTRATION RATE 19.5 (>39); GLUCOSE, FASTING 102 MG/DL (74-106); MAGNESIUM LEVEL 2.2 MG/DL (1.8-2.4); POTASSIUM SERUM 4.1 MMOL/L (3.5-5.1); SODIUM LEVEL 146 MMOL/L (136-145); TOTAL PROTEIN 5.5 G/DL (5.7-8.2)
[2023-06-26] MEDS: allopurinoL 100 MG TAB PO SCH (08:09)
[2023-06-26] MEDS: ASPIRIN 81MG CHEW TABLET PO SCH (08:09)
[2023-06-26] MEDS: CLOPIDOGREL 75 MG TAB PO SCH (08:09)
[2023-06-26] MEDS: METOPROLOL SUCC (TopROL XL) 100MG *XL* TAB PO SCH ×2 (08:10→20:19)
[2023-06-26] MEDS: ATORVASTATIN 20 MG TAB PO SCH (08:10)
[2023-06-26] MEDS: FERROUS SULFATE 325MG TAB PO SCH (08:10)
[2023-06-26] MEDS: OMEGA-3 1000MG CAPSULE PO SCH ×3 (08:11→20:24)
[2023-06-26] MEDS ORDERED: AZITHROMYCIN 250MG TABLET PO SCH (09:00)
[2023-06-26] MEDS ORDERED: AZITHROMYCIN INJ 500 MG, VIAL MATE ADAPTER 1 EACH in NS 250 ML IV SCH (09:00)
[2023-06-26] MEDS ORDERED: cefTRIAXone SOD 1 GM in D5W MINI-BAG PLUS 50 ML IV SCH ×2 (09:00→16:00)
[2023-06-26] MEDS ORDERED: FUROSEMIDE 20 MG TAB PO SCH (09:00)
[2023-06-26] MEDS ORDERED: SODIUM BICARBONATE 50 MEQ in NS 0.45% 1,000 ML IV SCH (12:00)
[2023-06-26] MEDS: HEPARIN DRIP 25,000 UNITS in IV 1 EA IV SCH (12:53)
[2023-06-27] VITALS (7 sets, daily range): BP systolic 114–162; BP diastolic 51–68; TEMP 97.1–98.4; O2SAT 93–97
[2023-06-27] MEDS: IPRATROPIUM 0.5MG/ALBUTEROL 2.5MG INH SOL UD 3ML (DUONEB) NEB SCH ×6 (03:41→22:41)
[2023-06-27 07:09] LABS: FERRITIN 590.7 NG/ML (7.3-270.7); PERCENT SATURATION 17.3 % (13.2-45.0)
[2023-06-27 07:46] LABS: BASO % 0.2 % (0.0-1.0); EOS # 0.4 10^3/uL (0.0-0.5); EOS % 3.7 % (0.0-3.0); HEMATOCRIT 27.3 % (36.0-47.0); HEMOGLOBIN 8.6 g/dl (12.0-15.5); LYMPH # 1.5 10^3/uL (1.5-5.0); LYMPH % 15.4 % (24.0-44.0); MEAN CORPUSCULAR HEMOGLOBIN 30.4 pg (27.0-33.0); MEAN CORPUSCULAR HGB CONC 31.5 g/dl (32.0-36.5); MEAN CORPUSCULAR VOLUME 96.5 fl (80.0-96.0); MONO # 0.9 10^3/uL (0.0-0.8); NEUTROPHILS # 6.6 10^3/uL (1.5-8.5); NEUTROPHILS % 70.1 % (36.0-66.0); PLATELET COUNT, AUTOMATED 291 10^3/uL (150-450); RED BLOOD COUNT 2.83 10^6/uL (4.00-5.40); WHITE BLOOD COUNT 9.4 10^3/uL (4.0-10.0)
[2023-06-27] MEDS: OMEGA-3 1000MG CAPSULE PO SCH ×2 (08:32→20:40)
[2023-06-27] MEDS: ATORVASTATIN 20 MG TAB PO SCH (08:32)
[2023-06-27] MEDS: INSULIN LISPRO (NovoLOG) PER UNIT SC SCH ×4 (08:32→20:20)
[2023-06-27] MEDS: CLOPIDOGREL 75 MG TAB PO SCH (08:32)
[2023-06-27] MEDS: ASPIRIN 81MG CHEW TABLET PO SCH (08:32)
[2023-06-27] MEDS: allopurinoL 100 MG TAB PO SCH (08:32)
[2023-06-27] MEDS: METOPROLOL SUCC (TopROL XL) 100MG *XL* TAB PO SCH ×2 (08:33→20:37)
[2023-06-27] MEDS: FERROUS SULFATE 325MG TAB PO SCH (08:33)
[2023-06-27 08:34] LABS: CALCIUM LEVEL 8.6 MG/DL (8.3-10.6); CREATININE FOR GFR 2.47 MG/DL (0.55-1.30); GLOMERULAR FILTRATION RATE 20.2 (>39); MAGNESIUM LEVEL 2.2 MG/DL (1.8-2.4); POTASSIUM SERUM 4.2 MMOL/L (3.5-5.1)
[2023-06-27] MEDS: HEPARIN DRIP 25,000 UNITS in IV 1 EA IV SCH (09:11)
[2023-06-27] MEDS: amLODIPine 5 MG TAB PO SCH (11:30)
[2023-06-27] MEDS ORDERED: FERRIC CARBOXYMALTOSE INJ 750 MG, VIAL MATE ADAPTER 1 EACH in NS 250 ML IV ONE (12:00)
[2023-06-28] MEDS: IPRATROPIUM 0.5MG/ALBUTEROL 2.5MG INH SOL UD 3ML (DUONEB) NEB SCH ×6 (03:29→23:56)
[2023-06-28 06:06] LABS: BASO % 0.4 % (0.0-1.0); EOS # 0.4 10^3/uL (0.0-0.5); EOS % 3.5 % (0.0-3.0); HEMOGLOBIN 8.4 g/dl (12.0-15.5); LYMPH # 1.3 10^3/uL (1.5-5.0); LYMPH % 12.2 % (24.0-44.0); MEAN CORPUSCULAR HEMOGLOBIN 30.3 pg (27.0-33.0); MEAN CORPUSCULAR HGB CONC 31.1 g/dl (32.0-36.5); MEAN CORPUSCULAR VOLUME 97.5 fl (80.0-96.0); MONO # 1.2 10^3/uL (0.0-0.8); NEUTROPHILS # 7.5 10^3/uL (1.5-8.5); NEUTROPHILS % 71.8 % (36.0-66.0); PLATELET COUNT, AUTOMATED 307 10^3/uL (150-450); RED BLOOD COUNT 2.77 10^6/uL (4.00-5.40); WHITE BLOOD COUNT 10.5 10^3/uL (4.0-10.0)
[2023-06-28 06:15] LABS: INR 1.16; PROTHROMBIN TIME 14.5 SECONDS (12.5-14.5)
[2023-06-28 06:17] LABS: PARTIAL THROMBOPLASTIN TIME 84.1 SECONDS (24.8-34.2)
[2023-06-28] MEDS: HEPARIN DRIP 25,000 UNITS in IV 1 EA IV SCH (06:19)
[2023-06-28 07:05] LABS: ALBUMIN 2.5 G/DL (3.2-5.2); CALCIUM LEVEL 8.5 MG/DL (8.3-10.6); CREATININE FOR GFR 2.38 MG/DL (0.55-1.30); MAGNESIUM LEVEL 2.2 MG/DL (1.8-2.4); POTASSIUM SERUM 4.1 MMOL/L (3.5-5.1)
[2023-06-28 07:41] VITALS: BP 148/62; TEMP 97.7; O2SAT 98
[2023-06-28] MEDS: OMEGA-3 1000MG CAPSULE PO SCH ×2 (09:00→20:42)
[2023-06-28] MEDS: amLODIPine 5 MG TAB PO SCH (09:05)
[2023-06-28] MEDS: allopurinoL 100 MG TAB PO SCH (09:05)
[2023-06-28] MEDS: INSULIN LISPRO (NovoLOG) PER UNIT SC SCH ×4 (09:05→20:42)
[2023-06-28] MEDS: CLOPIDOGREL 75 MG TAB PO SCH (09:06)
[2023-06-28] MEDS: FERROUS SULFATE 325MG TAB PO SCH (09:06)
[2023-06-28] MEDS: ASPIRIN 81MG CHEW TABLET PO SCH (09:06)
[2023-06-28] MEDS: ATORVASTATIN 20 MG TAB PO SCH (09:06)
[2023-06-28] MEDS: METOPROLOL SUCC (TopROL XL) 100MG *XL* TAB PO SCH ×2 (09:09→20:37)
[2023-06-28 11:24] VITALS: BP 143/64; TEMP 98.3; O2SAT 98
[2023-06-28 16:00] VITALS: BP 146/62; TEMP 97.4; O2SAT 97
[2023-06-28 20:00] VITALS: BP 147/65; TEMP 97.8; O2SAT 97
[2023-06-28] MEDS: HEPARIN SOD (PORCINE) 5000UNITS/ML 1ML VIAL/SYRINGE SC SCH (23:15)
[2023-06-29] VITALS (7 sets, daily range): BP systolic 124–176; BP diastolic 58–72; TEMP 98–99.4; O2SAT 91–98
[2023-06-29] MEDS: IPRATROPIUM 0.5MG/ALBUTEROL 2.5MG INH SOL UD 3ML (DUONEB) NEB SCH ×5 (03:26→20:07)
[2023-06-29] MEDS: HEPARIN SOD (PORCINE) 5000UNITS/ML 1ML VIAL/SYRINGE SC SCH ×3 (05:13→22:41)
[2023-06-29 05:20] LABS: BASO % 0.4 % (0.0-1.0); EOS # 0.4 10^3/uL (0.0-0.5); HEMATOCRIT 26.9 % (36.0-47.0); HEMOGLOBIN 8.4 g/dl (12.0-15.5); LYMPH % 11.3 % (24.0-44.0); MEAN CORPUSCULAR HEMOGLOBIN 30.3 pg (27.0-33.0); MEAN CORPUSCULAR HGB CONC 31.2 g/dl (32.0-36.5); MEAN CORPUSCULAR VOLUME 97.1 fl (80.0-96.0); MONO # 0.9 10^3/uL (0.0-0.8); MONO % 10.6 % (2.0-8.0); NEUTROPHILS # 6.1 10^3/uL (1.5-8.5); NEUTROPHILS % 71.5 % (36.0-66.0); PLATELET COUNT, AUTOMATED 287 10^3/uL (150-450); RED BLOOD COUNT 2.77 10^6/uL (4.00-5.40); WHITE BLOOD COUNT 8.6 10^3/uL (4.0-10.0)
[2023-06-29 05:45] LABS: ALBUMIN 2.4 G/DL (3.2-5.2); CALCIUM LEVEL 8.7 MG/DL (8.3-10.6); CREATININE FOR GFR 2.33 MG/DL (0.55-1.30); GLOMERULAR FILTRATION RATE 21.6 (>39); MAGNESIUM LEVEL 2.2 MG/DL (1.8-2.4); PHOSPHORUS LEVEL 3.6 MG/DL (2.4-5.1); POTASSIUM SERUM 4.4 MMOL/L (3.5-5.1)
[2023-06-29] MEDS: INSULIN LISPRO (NovoLOG) PER UNIT SC SCH ×4 (07:30→20:39)
[2023-06-29] MEDS: METOPROLOL SUCC (TopROL XL) 100MG *XL* TAB PO SCH ×2 (09:00→20:38)
[2023-06-29] MEDS: OMEGA-3 1000MG CAPSULE PO SCH ×2 (09:00→20:38)
[2023-06-29] MEDS: CLOPIDOGREL 75 MG TAB PO SCH (10:07)
[2023-06-29] MEDS: allopurinoL 100 MG TAB PO SCH (10:07)
[2023-06-29] MEDS: amLODIPine 5 MG TAB PO SCH (10:07)
[2023-06-29] MEDS: ATORVASTATIN 20 MG TAB PO SCH (10:07)
[2023-06-29] MEDS: ASPIRIN 81MG CHEW TABLET PO SCH (10:07)
[2023-06-29] MEDS: FERROUS SULFATE 325MG TAB PO SCH (10:07)
[2023-06-30] VITALS (8 sets, daily range): BP systolic 122–162; BP diastolic 50–65; PULSE 62; TEMP 97.9–99; O2SAT 89–95
[2023-06-30] MEDS: IPRATROPIUM 0.5MG/ALBUTEROL 2.5MG INH SOL UD 3ML (DUONEB) NEB SCH ×4 (03:33→11:42)
[2023-06-30] MEDS: NITROGLYCERIN 0.4MG SUBL TABLET SL PRN ×2 (05:11→05:17)
[2023-06-30] MEDS: HEPARIN SOD (PORCINE) 5000UNITS/ML 1ML VIAL/SYRINGE SC SCH (05:30)
[2023-06-30 05:39] LABS: BASO % 0.2 % (0.0-1.0); EOS # 0.3 10^3/uL (0.0-0.5); EOS % 3.5 % (0.0-3.0); HEMATOCRIT 26.8 % (36.0-47.0); HEMOGLOBIN 8.2 g/dl (12.0-15.5); LYMPH # 1.1 10^3/uL (1.5-5.0); LYMPH % 11.9 % (24.0-44.0); MEAN CORPUSCULAR HEMOGLOBIN 29.8 pg (27.0-33.0); MEAN CORPUSCULAR HGB CONC 30.6 g/dl (32.0-36.5); MEAN CORPUSCULAR VOLUME 97.5 fl (80.0-96.0); MONO % 10.1 % (2.0-8.0); NEUTROPHILS % 73.6 % (36.0-66.0); PLATELET COUNT, AUTOMATED 291 10^3/uL (150-450); RED BLOOD COUNT 2.75 10^6/uL (4.00-5.40); WHITE BLOOD COUNT 9.5 10^3/uL (4.0-10.0)
[2023-06-30 06:10] LABS: ALBUMIN 2.5 G/DL (3.2-5.2); CREATININE FOR GFR 2.21 MG/DL (0.55-1.30); GLOMERULAR FILTRATION RATE 22.9 (>39); MAGNESIUM LEVEL 2.4 MG/DL (1.8-2.4); PHOSPHORUS LEVEL 3.5 MG/DL (2.4-5.1); POTASSIUM SERUM 4.4 MMOL/L (3.5-5.1)
[2023-06-30] MEDS: METOPROLOL SUCC (TopROL XL) 100MG *XL* TAB PO SCH (09:00)
[2023-06-30] MEDS: allopurinoL 100 MG TAB PO SCH (09:03)
[2023-06-30] MEDS: ASPIRIN 81MG CHEW TABLET PO SCH (09:03)
[2023-06-30] MEDS: INSULIN LISPRO (NovoLOG) PER UNIT SC SCH ×2 (09:03→12:22)
[2023-06-30] MEDS: CLOPIDOGREL 75 MG TAB PO SCH (09:04)
[2023-06-30] MEDS: FERROUS SULFATE 325MG TAB PO SCH (09:04)
[2023-06-30] MEDS: ATORVASTATIN 20 MG TAB PO SCH (09:04)
[2023-06-30] MEDS: OMEGA-3 1000MG CAPSULE PO SCH (09:04)
[2023-06-30] MEDS: amLODIPine 5 MG TAB PO SCH (09:05)
[2023-06-30] MEDS ORDERED: CLOP75TA2 PO (10:20)
[2023-06-30] MEDS ORDERED: ATOR1TAB21 PO (10:20)
[2023-06-30] MEDS ORDERED: NITR4TASL SL (10:20)
[2023-06-30] MEDS ORDERED: FUROSEMIDE 40MG/4ML VIAL IV ONE (11:00)
[2023-07-05] MEDS ORDERED: NITR0.4S14 SL (21:48)
[2023-07-05] MEDS ORDERED: METO1TAB32 PO (21:48)
[2023-07-05] MEDS ORDERED: SIMV10TA21 PO (21:48)
[2023-07-05] MEDS ORDERED: CLOP75TA99 PO (21:48)
[2023-07-05] MEDS ORDERED: AMLO1TAB25 PO (21:48)
[2023-07-05] MEDS ORDERED: ISOS1TAB36 PO (21:48)
[2023-07-05] MEDS ORDERED: HYDR-3490 PO (21:48)
[2023-07-05] MEDS ORDERED: ACTO30TA15 PO (21:48)
== END 2023-06-30 12:56 | disposition short-term general hospital (02) | DRG 281 ==
LOC: M ED 10:13 → M ED INP 18:42 → ENRESERV 19:54 → M ICU 20:19 → M PCU 06-27 03:38
PROVIDERS: ADMIT Internal Medicine Critical Care Medicine; ATTEND Student in an Organized Health Care Education/Training Program
DX: I21.4 Non-ST elevation (NSTEMI) myocardial infarction (principal); E87.20 Acidosis, unspecified; E87.0 Hyperosmolality and hypernatremia; N17.9 Acute kidney failure, unspecified; N18.30 Chronic kidney disease, stage 3 unspecified; D50.9 Iron deficiency anemia, unspecified; E11.22 Type 2 diabetes mellitus with diabetic chronic kidney disease; I25.10 Atherosclerotic heart disease of native coronary artery without angina pectoris; I12.9 Hypertensive chronic kidney disease with stage 1 through stage 4 chronic kidney disease, or unspecified chronic kidney disease; M10.9 Gout, unspecified; E78.5 Hyperlipidemia, unspecified; Z79.82 Long term (current) use of aspirin; Z79.899 Other long term (current) drug therapy; Z87.891 Personal history of nicotine dependence

== ENCOUNTER → 2023-09-01 | Outpatient (CLI) | payer OTHER ==
[~2023-09-01] MED LIST changes: +ACTO30TA15 PO; +AMLO1TAB25 PO; +ASPI81TA26 PO; +ATOR1TAB21 PO; +CLOP75TA2 PO; +CLOP75TA99 PO; +FURO20TA2 PO; +FURO40TA2 PO; +HYDR25TA87 PO; +IRON65TA2 PO; +ISOS1TAB36 PO; +METO1TAB32 PO; +NITR0.4S14 SL; +NITR4TASL SL
== END ==
LOC: M WHC 12:50
PROVIDERS: ATTEND Family Medicine
DX: Z12.31 Encounter for screening mammogram for malignant neoplasm of breast (principal)

== ENCOUNTER → 2024-01-09 | Outpatient (REF) | payer OTHER, MEDICAID ==
[2024-01-09 16:56] LABS: BASO # 0.1 10^3/uL (0.0-0.2); BASO % 0.5 % (0.0-1.0); EOS # 0.3 10^3/uL (0.0-0.5); EOS % 2.1 % (0.0-3.0); HEMATOCRIT 39.8 % (36.0-47.0); HEMOGLOBIN 12.9 g/dl (12.0-15.5); LYMPH # 1.5 10^3/uL (1.5-5.0); LYMPH % 11.6 % (24.0-44.0); MEAN CORPUSCULAR HEMOGLOBIN 30.7 pg (27.0-33.0); MEAN CORPUSCULAR HGB CONC 32.4 g/dl (32.0-36.5); MEAN CORPUSCULAR VOLUME 94.8 fl (80.0-96.0); MONO # 0.9 10^3/uL (0.0-0.8); MONO % 7.3 % (2.0-8.0); NEUTROPHILS # 9.8 10^3/uL (1.5-8.5); PLATELET COUNT, AUTOMATED 372 10^3/uL (150-450); WHITE BLOOD COUNT 12.5 10^3/uL (4.0-10.0)
[2024-01-09 17:02] LABS: INR 1.05; PROTHROMBIN TIME 13.4 SECONDS (12.5-14.5)
[2024-01-09 17:03] LABS: ALBUMIN 3.8 G/DL (3.2-5.2); ALKALINE PHOSPHATASE 100 U/L (46-116); ALT/SGPT < 9 U/L (7.0-40); AST/SGOT < 8 U/L (<34); BILIRUBIN,TOTAL 0.4 MG/DL (0.3-1.2); BLOOD UREA NITROGEN 61 MG/DL (9-23); CALCIUM LEVEL 10.5 MG/DL (8.3-10.6); CARBON DIOXIDE LEVEL 30 MMOL/L (20-31); CHLORIDE LEVEL 101 MMOL/L (98-107); CREATININE FOR GFR 2.55 MG/DL (0.55-1.30); GLOMERULAR FILTRATION RATE 19.4 (>39); GLUCOSE, FASTING 201 MG/DL (74-106); POTASSIUM SERUM 4.6 MMOL/L (3.5-5.1); SODIUM LEVEL 137 MMOL/L (136-145); TOTAL PROTEIN 7.3 G/DL (5.7-8.2)
[2024-01-09 18:16] LABS: HEMOGLOBIN A1c 6.8 % (4.0-6.0)
== END ==
LOC: M SFHCLERA 11:43
PROVIDERS: ATTEND Family Medicine
DX: Z01.818 Encounter for other preprocedural examination (principal); E11.22 Type 2 diabetes mellitus with diabetic chronic kidney disease

== ENCOUNTER → 2024-01-11 | Outpatient (REF) | payer OTHER, MEDICAID ==
[2024-01-11 11:43] LABS: INR 1.08; PARTIAL THROMBOPLASTIN TIME 24.3 SECONDS (24.8-34.2); PROTHROMBIN TIME 13.7 SECONDS (12.5-14.5)
== END ==
LOC: M SFHCLERA 09:26
PROVIDERS: ATTEND Family Medicine
DX: Z01.818 Encounter for other preprocedural examination (principal); Z79.01 Long term (current) use of anticoagulants

== ENCOUNTER 2024-01-16 06:00 | Day surgery (SDC) | payer OTHER, MEDICAID ==
[~2024-01-16] VITALS: Ht 165.1 cm; Wt 86.5 kg
[2024-01-16] MEDS ORDERED: LR 1,000 ML IV SCH (07:00)
[2024-01-16] MEDS: ATROPINE SULFATE 1% OPHTH SOLN 2ML BTL OD SCH (07:12)
[2024-01-16] MEDS: FLURBIPROFEN 0.03% OPHTH SOLN 2.5 ML OD SCH (07:12)
[2024-01-16] MEDS: TETRACAINE 0.5% OPHTH SOLN 4ML OD SCH (07:12)
[2024-01-16] MEDS: PHENYLEPHRINE 2.5% OPHTH SOL 2ML OD SCH (07:12)
[2024-01-16] MEDS ORDERED: MIDAZOLAM INJ 2MG/2ML VIAL As Ordered ONE (07:57)
[2024-01-16] MEDS: LIDOCAINE 1% SDV 5ML VIAL As Ordered ONE (08:02)
[2024-01-16] MEDS: CEFUROXIME 1MG/0.1ML INTRACAMERAL INJ As Ordered ONE (08:11)
[2024-01-16 08:20] VITALS: BP 179/86; TEMP 97.2; O2SAT 97
== END 2024-01-16 08:36 | disposition home or self-care (01) ==
LOC: M SDC 06:00
PROVIDERS: ATTEND Ophthalmology
DX: H25.11 Age-related nuclear cataract, right eye (principal); E11.9 Type 2 diabetes mellitus without complications; I12.9 Hypertensive chronic kidney disease with stage 1 through stage 4 chronic kidney disease, or unspecified chronic kidney disease; N18.4 Chronic kidney disease, stage 4 (severe); E78.5 Hyperlipidemia, unspecified; D50.9 Iron deficiency anemia, unspecified; Z87.891 Personal history of nicotine dependence; Z79.899 Other long term (current) drug therapy; Z79.82 Long term (current) use of aspirin
CPT/HCPCS: 66984; J0697; J2250; V2632

== ENCOUNTER → 2024-02-07 | Outpatient (CLI) | payer OTHER, MEDICAID | LOC: M RAD 11:52 | PROVIDERS: ATTEND Surgery | DX: Z01.818 Encounter for other preprocedural examination (principal); N18.32 Chronic kidney disease, stage 3b ==

== ENCOUNTER 2024-03-19 09:33 | Day surgery (SDC) | payer OTHER, MEDICAID ==
[~2024-03-19] VITALS: Ht 166.4 cm; Wt 81.4 kg
[~2024-03-19 09:33] MED LIST changes: +LR 1,000 ML IV SCH
[2024-03-19] MEDS: TETRACAINE 0.5% OPHTH SOLN 4ML OS SCH (10:02)
[2024-03-19] MEDS: ATROPINE SULFATE 1% OPHTH SOLN 2ML BTL OS SCH (10:02)
[2024-03-19] MEDS: PHENYLEPHRINE 2.5% OPHTH SOL 2ML OS SCH (10:02)
[2024-03-19] MEDS: FLURBIPROFEN 0.03% OPHTH SOLN 2.5 ML OS SCH (10:02)
[2024-03-19] MEDS ORDERED: MIDAZOLAM INJ 2MG/2ML VIAL As Ordered ONE (10:07)
[2024-03-19] MEDS ORDERED: fentaNYL 100 MCG/2 ML INJECTION As Ordered ONE (10:08)
[2024-03-19] MEDS: CEFUROXIME 1MG/0.1ML INTRACAMERAL INJ As Ordered ONE (11:29)
[2024-03-19] MEDS: LIDOCAINE 1% SDV 5ML VIAL As Ordered ONE (11:29)
[2024-03-19 11:45] VITALS: BP 140/63; TEMP 96.4; O2SAT 97
== END 2024-03-19 12:06 | disposition home or self-care (01) ==
LOC: M SDC 09:33
PROVIDERS: ATTEND Ophthalmology
DX: H25.12 Age-related nuclear cataract, left eye (principal); E11.9 Type 2 diabetes mellitus without complications; I10 Essential (primary) hypertension; E78.5 Hyperlipidemia, unspecified; D50.9 Iron deficiency anemia, unspecified; M10.9 Gout, unspecified; Z87.891 Personal history of nicotine dependence; Z79.84 Long term (current) use of oral hypoglycemic drugs; Z79.82 Long term (current) use of aspirin; N18.4 Chronic kidney disease, stage 4 (severe); Z79.02 Long term (current) use of antithrombotics/antiplatelets
CPT/HCPCS: 66984; J0697; J2250; J3010; V2632

== ENCOUNTER → 2025-02-08 | Outpatient (CLI) | payer MEDICARE, MEDICAID ==
[~2025-02-08] MED LIST changes: +GLIP10TA15 PO; -GLIP10TA6 PO; -LR 1,000 ML IV SCH
== END ==
LOC: M RAD 11:49
PROVIDERS: ATTEND Surgery
DX: N18.9 Chronic kidney disease, unspecified (principal); Z99.2 Dependence on renal dialysis; T82.590A Other mechanical complication of surgically created arteriovenous fistula, initial encounter

== ENCOUNTER 2025-02-28 12:36 | Observation (INO) | payer MEDICARE, MEDICAID ==
[~2025-02-28] VITALS: Ht 165.1 cm; Wt 81.1 kg
[2025-02-28] MEDS ORDERED: AMLO25TA PO (13:06)
[2025-02-28] MEDS ORDERED: SEVE800T3 PO (13:06)
[2025-02-28 13:10] LABS: PLATELET COUNT, AUTOMATED 311 10^3/uL (150-450)
[2025-02-28] MEDS ORDERED: FURO40TA2 PO (13:25)
[2025-02-28] MEDS ORDERED: HOME MED LIST COMPLETE! XX SCH (13:25)
[2025-02-28] MEDS ORDERED: CLOP75TA2 PO (13:25)
[2025-02-28 13:40] LABS: CALCIUM LEVEL 9.8 MG/DL (8.3-10.6); CARBON DIOXIDE LEVEL 26.0 MMOL/L (20-31); CHLORIDE LEVEL 103.0 MMOL/L (98-107); CREATININE FOR GFR 2.65 MG/DL (0.55-1.30); GLOMERULAR FILTRATION RATE 17.8 (>39); POTASSIUM SERUM 4.0 MMOL/L (3.5-5.1); SODIUM LEVEL 143.0 MMOL/L (136-145)
[2025-02-28 14:42] LABS: MAGNESIUM LEVEL 2.1 MG/DL (1.8-2.4)
[2025-02-28] MEDS ORDERED: GLUCOSE 4 GM CHEW PO PRN (16:20)
[2025-02-28] MEDS ORDERED: DEXTROSE 50% 50 ML SYRINGE IV PRN (16:20)
[2025-02-28] MEDS ORDERED: GLUCAGON INJ 1 MG VIAL SC PRN (16:20)
[2025-02-28 16:46] LABS: C REACTIVE PROTEIN QUANTITATIV 1.46 MG/DL (<1.0)
[2025-02-28 16:49] LABS: PROLACTIN 72.73 NG/ML
[2025-02-28] MEDS ORDERED: ONDANSETRON 4MG 2ML VIAL IV PRN (17:05)
[2025-02-28] MEDS ORDERED: MORPHINE 2 MG/ML 1 ML VIAL IV PRN (17:10)
[2025-02-28] MEDS ORDERED: NALOXONE INJ 0.4 MG/1 ML VIAL IV PRN (17:10)
[2025-02-28 17:53] VITALS: BP 168/58; TEMP 97.7; O2SAT 98
[2025-02-28] MEDS: ACETAMINOPHEN 500 MG TAB PO ONE (18:28)
[2025-02-28] MEDS: ENOXAPARIN 40 MG/0.4 ML SYRINGE (J1650 PER 10MG) SC ONE (18:28)
[2025-02-28] MEDS: SEVELAMER *CARBONate* 800 MG TAB PO SCH (18:29)
[2025-02-28] MEDS: INSULIN LISPRO (NovoLOG) PER UNIT SC SCH ×2 (18:29→22:17)
[2025-02-28 20:16] VITALS: BP 130/49; TEMP 97.7; O2SAT 91
[2025-02-28 21:05] LABS: ERYTHROCYTE SEDIMENTATION RATE 103 mm/hr (0-30)
[2025-02-28] MEDS: LIDOCAINE 5% PATCH TD SCH (22:17)
[2025-02-28] MEDS: SIMVASTATIN 10 MG TAB PO SCH (22:19)
[2025-02-28] MEDS ORDERED: ACETAMINOPHEN 500 MG TAB PO PRN (23:00)
[2025-03-01] VITALS (7 sets, daily range): BP systolic 140–176; BP diastolic 56–68; TEMP 97.2–97.9; O2SAT 95–97
[2025-03-01] MEDS: ISOSORBIDE MONONITRATE 60 MG XR TAB PO SCH (08:07)
[2025-03-01] MEDS: CLOPIDOGREL 75 MG TAB PO SCH (08:08)
[2025-03-01] MEDS: ASPIRIN 81 MG ENTERIC TABLET PO SCH (08:08)
[2025-03-01] MEDS: FERROUS SULFATE 325 MG TAB PO SCH (08:08)
[2025-03-01] MEDS: FUROSEMIDE 40 MG TAB PO SCH (08:09)
[2025-03-01] MEDS: amLODIPine 10 MG TAB PO SCH (08:09)
[2025-03-01 08:19] LABS: BASO # 0.0 10^3/uL (0.0-0.2); BASO % 0.4 % (0.0-1.0); EOS # 0.3 10^3/uL (0.0-0.5); EOS % 3.0 % (0.0-3.0); LYMPH # 1.7 10^3/uL (1.5-5.0); LYMPH % 17.4 % (24.0-44.0); MONO # 0.8 10^3/uL (0.0-0.8); MONO % 8.5 % (2.0-8.0); NEUTROPHILS # 6.9 10^3/uL (1.5-8.5); NEUTROPHILS % 70.4 % (36.0-66.0); PLATELET COUNT, AUTOMATED 292 10^3/uL (150-450)
[2025-03-01 08:36] LABS: ESTIMATED AVERAGE GLUCOSE 131.0 MG/DL (60-110)
[2025-03-01 08:46] LABS: CALCIUM LEVEL 10.0 MG/DL (8.3-10.6); CARBON DIOXIDE LEVEL 28.0 MMOL/L (20-31); CHLORIDE LEVEL 106.0 MMOL/L (98-107); CHOLESTEROL LEVEL 136.0 MG/DL (<200); CHOLESTEROL RISK RATIO 2.98 (<5); CREATININE FOR GFR 2.35 MG/DL (0.55-1.30); GLOMERULAR FILTRATION RATE 20.6 (>39); LDL CHOLESTEROL 51.5 MG/DL (<100); NON-HDL-C 90.5 MG/DL; POTASSIUM SERUM 3.8 MMOL/L (3.5-5.1); SODIUM LEVEL 145.0 MMOL/L (136-145); TRIGLYCERIDES LEVEL 195.0 MG/DL (<150)
[2025-03-01 12:22] LABS: ALT/SGPT < 9 U/L (7.0-40); AST/SGOT 14 U/L (<34)
[2025-03-01 12:24] LABS: PROLACTIN 49.83 NG/ML
[2025-03-01] MEDS ORDERED: ISOSORBIDE DINITRATE 20 MG TAB PO ONE (12:40)
[2025-03-01] MEDS ORDERED: OXYC1TAB23 PO (13:01)
[2025-03-01 13:25] LABS: AMPHETAMINES LEVEL URINE NEGATIVE (NEGATIVE); BARBITURATES URINE NEGATIVE (NEGATIVE); BENZODIAZEPINES URINE NEGATIVE (NEGATIVE); CANNABINOIDS URINE NEGATIVE (NEGATIVE); COCAINE METABOLITE URINE NEGATIVE (NEGATIVE); METHADONE URINE NEGATIVE (NEGATIVE); OPIATES URINE NEGATIVE (NEGATIVE); PHENCYCLIDINE URINE NEGATIVE (NEGATIVE)
[2025-03-01] MEDS: ISOSORBIDE DINITRATE 20 MG TAB PO ONE (14:53)
[2025-03-01] MEDS: ENOXAPARIN 40 MG/0.4 ML SYRINGE (J1650 PER 10MG) SC SCH (17:28)
== END 2025-03-01 18:36 | disposition home or self-care (01) ==
LOC: M ED 12:36 → EDBD 12:36 → M ED INP 12:37 → M MSPAV 17:54
PROVIDERS: ADMIT General Practice; ATTEND General Practice
DX: R55 Syncope and collapse (principal); M54.2 Cervicalgia; I16.0 Hypertensive urgency; I12.9 Hypertensive chronic kidney disease with stage 1 through stage 4 chronic kidney disease, or unspecified chronic kidney disease; E78.5 Hyperlipidemia, unspecified; E11.9 Type 2 diabetes mellitus without complications; N18.4 Chronic kidney disease, stage 4 (severe); D50.9 Iron deficiency anemia, unspecified; E79.0 Hyperuricemia without signs of inflammatory arthritis and tophaceous disease; I25.10 Atherosclerotic heart disease of native coronary artery without angina pectoris; I50.32 Chronic diastolic (congestive) heart failure; Z79.82 Long term (current) use of aspirin; Z79.899 Other long term (current) drug therapy; Z79.84 Long term (current) use of oral hypoglycemic drugs
CPT/HCPCS: 36415; 70450; 70551; 71045; 72040; 72072; 80048; 80061; 80076; 80307; 82140; 82150; 83036; 83690; 83735; 84145; 84146; 84443; 84484; 85025; 85027; 85652; 86140; 93005; 93306; 95819; 96372; 97165; 99285; G0378; J1650; J1815

== ENCOUNTER → 2025-03-21 | Outpatient (CLI) | payer MEDICARE, MEDICAID ==
[~2025-03-21] MED LIST changes: +AMLO25TA PO; +OXYC1TAB23 PO; +SEVE800T3 PO
[2025-03-21 11:01] LABS: BASO # 0.1 10^3/uL (0.0-0.2); BASO % 0.6 % (0.0-1.0); EOS # 0.3 10^3/uL (0.0-0.5); EOS % 2.7 % (0.0-3.0); LYMPH # 1.8 10^3/uL (1.5-5.0); LYMPH % 14.6 % (24.0-44.0); MONO # 0.9 10^3/uL (0.0-0.8); MONO % 7.3 % (2.0-8.0); NEUTROPHILS # 9.2 10^3/uL (1.5-8.5); NEUTROPHILS % 74.2 % (36.0-66.0); PLATELET COUNT, AUTOMATED 319 10^3/uL (150-450)
[2025-03-21 11:40] LABS: CREATININE, URINE 45.1 MG/DL; MALB URINE SIEMENS 41.0 MG/L; MAU/CREAT RATIO 90.9 MCG/MG (0.0-30.0)
[2025-03-21 11:53] LABS: ALT/SGPT < 9 U/L (7.0-40); AST/SGOT 11 U/L (<34); CALCIUM LEVEL 9.5 MG/DL (8.3-10.6); CARBON DIOXIDE LEVEL 23 MMOL/L (20-31); CHLORIDE LEVEL 106 MMOL/L (98-107); CHOLESTEROL LEVEL 125 MG/DL (<200); CHOLESTEROL RISK RATIO 2.44 (<5); CREATININE FOR GFR 2.37 MG/DL (0.55-1.30); GLOMERULAR FILTRATION RATE 20.4 (>39); LDL CHOLESTEROL 43.5 MG/DL (<100); NON-HDL-C 73.9 MG/DL; POTASSIUM SERUM 4.4 MMOL/L (3.5-5.1); SODIUM LEVEL 141 MMOL/L (136-145); TRIGLYCERIDES LEVEL 152 MG/DL (<150)
[2025-03-21 14:16] LABS: ESTIMATED AVERAGE GLUCOSE 137.0 MG/DL (60-110)
== END ==
LOC: M LAB 09:25
PROVIDERS: ATTEND Family Medicine
DX: E11.22 Type 2 diabetes mellitus with diabetic chronic kidney disease (principal)